=== PATIENT | female | born 1990 | race Caucasian/White ===

== ENCOUNTER 2018-11-19 10:54 | Outpatient (CLI) | payer OTHER ==
[~2018-11-19] VITALS: Ht 162.6 cm; Wt 78.6 kg
[~2018-11-19 10:54] MED LIST: PREN1TAB27 PO
[2018-11-19 11:49] VITALS: BP 111/69
[2018-11-19 11:52] LABS: MICROSCOPIC NOT IND
[2018-11-19 12:03] LABS: AMPHETAMINE SCREEN, URINE Negative (Negative); BARBITURATE SCREEN, URINE Negative (Negative); BENZODIAZEPINE SCREEN, URINE Negative (Negative); CANNABINOID SCREEN, URINE Negative (Negative); COCAINE SCREEN, URINE Negative (Negative); METHADONE SCREEN, URINE Negative (Negative); OPIATE SCREEN, URINE Negative (Negative)
[2018-11-19 12:20] LABS: FERNING TEST FERNING NOT PRESENT (NEGATIVE)
== END 2018-11-19 13:00 | disposition home or self-care (01) ==
LOC: LDOP 10:54
PROVIDERS: ATTEND Advanced Practice Midwife
DX: O42.913 Preterm premature rupture of membranes, unspecified as to length of time between rupture and onset of labor, third trimester (principal); O26.893 Other specified pregnancy related conditions, third trimester; R10.9 Unspecified abdominal pain; Z3A.34 34 weeks gestation of pregnancy
CPT/HCPCS: 59025; 80307; 81003; 84112; 87086; 89060; 99211; G0463; Q0114

== ENCOUNTER 2018-12-24 05:16 | Inpatient (IN) | payer OTHER ==
[~2018-12-24] VITALS: Ht 162.6 cm; Wt 79.5 kg
[2018-12-24] MEDS ORDERED: OXYTOCIN 30U/ 0.9% NaCL 500ML 500 ML IV ONE (05:20)
[2018-12-24] MEDS ORDERED: CALCIUM CARBONATE 500 MG TAB.CHEW PO PRN (05:30)
[2018-12-24] MEDS ORDERED: FENTANYL PF 100 MCG/2ML IV PRN (05:30)
[2018-12-24] MEDS ORDERED: TERBUTALINE 1 MG/ML, 1ML IVPush PRN ×2 (05:30)
[2018-12-24] MEDS ORDERED: ONDANSETRON 2MG/ML, 2ML IVPush PRN (05:30)
[2018-12-24] MEDS ORDERED: FENTANYL PF 100 MCG/2ML IVPush PRN (05:30)
[2018-12-24 05:31] VITALS: BP 112/77
[2018-12-24] MEDS: LACTATED RINGERS 1,000 ML IV SCH ×2 (06:08→11:06)
[2018-12-24] MEDS ORDERED: OXYTOCIN 30U/ 0.9% NaCL 500ML 500 ML ONE ×2 (06:12→19:26)
[2018-12-24] MEDS ORDERED: OXYTOCIN 30U/ 0.9% NaCL 500ML 500 ML IV PRN (06:15)
[2018-12-24 06:21] LABS: BASOPHILS # (AUTO) 0.04 x10^3/uL (0-0.1); BASOPHILS % (AUTO) 1 % (0-1); EOSINOPHILS # (AUTO) 0.26 x10^3/uL (0-0.4); EOSINOPHILS % (AUTO) 4 % (1-7); LYMPHOCYTES # (AUTO) 1.78 x10^3/uL (1-3.4); LYMPHOCYTES % (AUTO) 25 % (22-44); MD NO; MEAN CORPUSCULAR HEMOGLOBIN 29.7 pg (27.0-34.8); MEAN CORPUSCULAR HGB CONC 34.4 g/dL (32.4-35.8); MEAN CORPUSCULAR VOLUME 86.2 fL (80-100); MEAN PLATELET VOLUME 7.8 fL (7.4-10.4); MONOCYTES # (AUTO) 0.64 x10^3/uL (0.2-0.8); MONOCYTES % (AUTO) 9 % (2-9); NEUTROPHILS # (AUTO) 4.32 x10^3/uL (1.8-6.8); NEUTROPHILS % (AUTO) 61 % (42-75); PLATELET COUNT 326 x10^3/uL (130-400); RED BLOOD COUNT 4.16 x10^6/uL (3.82-5.3); RED CELL DISTRIBUTION WIDTH 12.9 % (9.6-15.2)
[2018-12-24] MEDS ORDERED: FENTANYL/BUPIV./NS/PF 250 ML EPIDCONT SCH ×2 (07:26→10:42)
[2018-12-24] MEDS ORDERED: LACTATED RINGERS 1,000 ML IV SCH (07:26)
[2018-12-24] MEDS ORDERED: EPHEDRINE 50 MG/ML, 1ML IVPush PRN (07:30)
[2018-12-24] MEDS ORDERED: LACTATED RINGERS 1,000 ML IVBOLUS PRN (07:30)
[2018-12-24] MEDS ORDERED: NALOXONE 0.4 MG/ML, 1ML IVPush PRN (07:30)
[2018-12-24] MEDS ORDERED: FENTANYL PF 500 MCG, BUPIVACAINE/PF 0.5%, 30ML 62.5 ML in SODIUM CHLORIDE 0.9% 177.5 ML EPIDCONT SCH (11:00)
[2018-12-24] MEDS ORDERED: NEWBORN KIT ONE (12:48)
[2018-12-24] MEDS ORDERED: BUPIVACAINE 0.25% ONE ×2 (13:01→13:05)
[2018-12-24] MEDS ORDERED: FENTANYL/BUPIV./NS/PF 250 ML EPIDCONT ONE (13:05)
[2018-12-24] MEDS ORDERED: CALCIUM CARBONATE 500 MG TAB.CHEW ONE (16:38)
[2018-12-24] MEDS ORDERED: D5%-LACTATED RINGERS 1,000 ML IV SCH (17:00)
[2018-12-24 19:04] VITALS: BP 102/62
[2018-12-24] MEDS ORDERED: LIDOCAINE 1%, 20ML ONE (19:25)
[2018-12-24] MEDS ORDERED: MISOPROSTOL 200 MCG TABLET ONE (19:26)
[2018-12-24] MEDS ORDERED: IBUPROFEN 600 MG TABLET ONE (21:12)
[2018-12-24] MEDS ORDERED: OXYcodone/APAP 5/325MG TABLET ONE (21:13)
[2018-12-24] MEDS: IBUPROFEN 600 MG TABLET PO PRN (21:16)
[2018-12-24] MEDS: OXYcodone/APAP 5/325MG TABLET PO PRN (21:16)
[2018-12-24] MEDS: OXYTOCIN 30U/ 0.9% NaCL 500ML 500 ML IV SCH (21:16)
[2018-12-24] MEDS ORDERED: CARBOPROST TROMETHAMINE 250 MCG/ML, 1ML IM PRN (21:30)
[2018-12-24] MEDS ORDERED: ACETAMINOPHEN 325 MG TABLET PO PRN (21:30)
[2018-12-24] MEDS ORDERED: MISOPROSTOL 200 MCG TABLET PR PRN (21:30)
[2018-12-24] MEDS ORDERED: METHYLERGONOVINE 0.2 MG/ML IM PRN (21:30)
[2018-12-24] MEDS ORDERED: OXYcodone IR 5MG TABLET PO PRN (21:30)
[2018-12-24] MEDS ORDERED: ONDANSETRON 2MG/ML, 2ML IV PRN (21:30)
[2018-12-24 23:45] VITALS: BP 115/75
[2018-12-25 02:30] VITALS: BP 103/67
[2018-12-25] MEDS: IBUPROFEN 600 MG TABLET PO PRN ×3 (03:45→16:41)
[2018-12-25] MEDS: OXYcodone/APAP 5/325MG TABLET PO PRN ×3 (03:45→21:39)
[2018-12-25 06:04] LABS: BASOPHILS # (AUTO) 0.03 x10^3/uL (0-0.1); BASOPHILS % (AUTO) 0 % (0-1); EOSINOPHILS # (AUTO) 0.05 x10^3/uL (0-0.4); EOSINOPHILS % (AUTO) 0 % (1-7); LYMPHOCYTES # (AUTO) 1.49 x10^3/uL (1-3.4); LYMPHOCYTES % (AUTO) 11 % (22-44); MD NO; MEAN CORPUSCULAR HEMOGLOBIN 29.2 pg (27.0-34.8); MEAN CORPUSCULAR HGB CONC 33.5 g/dL (32.4-35.8); MEAN CORPUSCULAR VOLUME 87.1 fL (80-100); MEAN PLATELET VOLUME 7.8 fL (7.4-10.4); MONOCYTES # (AUTO) 0.81 x10^3/uL (0.2-0.8); MONOCYTES % (AUTO) 6 % (2-9); NEUTROPHILS # (AUTO) 10.75 x10^3/uL (1.8-6.8); NEUTROPHILS % (AUTO) 82 % (42-75); PLATELET COUNT 325 x10^3/uL (130-400); RED BLOOD COUNT 3.97 x10^6/uL (3.82-5.3); RED CELL DISTRIBUTION WIDTH 12.9 % (9.6-15.2)
[2018-12-25 07:24] VITALS: BP 108/72
[2018-12-25] MEDS: PRENATAL VIT/IRON/FA 1 EACH TABLET PO SCH (09:54)
[2018-12-25] MEDS: DOCUSATE 100 MG CAPSULE PO PRN (09:55)
[2018-12-25 12:10] VITALS: BP 102/71
[2018-12-25] MEDS: OXYTOCIN 30U/ 0.9% NaCL 500ML 500 ML IV SCH (17:12)
[2018-12-25 21:15] VITALS: BP 106/73
[2018-12-26] MEDS: IBUPROFEN 600 MG TABLET PO PRN ×2 (02:43→08:11)
[2018-12-26] MEDS: OXYTOCIN 30U/ 0.9% NaCL 500ML 500 ML IV SCH (03:12)
[2018-12-26] MEDS: OXYcodone/APAP 5/325MG TABLET PO PRN (08:11)
[2018-12-26] MEDS: PRENATAL VIT/IRON/FA 1 EACH TABLET PO SCH (08:11)
[2018-12-26] MEDS: DOCUSATE 100 MG CAPSULE PO PRN (08:11)
[2018-12-26 08:45] VITALS: BP 112/76
[2018-12-26] MEDS ORDERED: DOCU-131 PO (10:04)
[2018-12-26] MEDS ORDERED: IBUP-1222 PO (10:04)
== END 2018-12-26 10:30 | disposition home or self-care (01) | DRG 806 ==
LOC: LDIP 05:16 → 2NW 23:24
PROVIDERS: ADMIT Obstetrics & Gynecology Maternal & Fetal Medicine; ATTEND Obstetrics & Gynecology Maternal & Fetal Medicine
PROC: 3E0R3BZ Introduction of Anesthetic Agent into Spinal Canal, Percutaneous Approach (ICD-10-PCS; principal; 2018-12-24)
PROC: 10E0XZZ Delivery of Products of Conception, External Approach (ICD-10-PCS; 2018-12-24)
PROC: 00HU33Z Insertion of Infusion Device into Spinal Canal, Percutaneous Approach (ICD-10-PCS; 2018-12-24)
PROC: 10907ZC Drainage of Amniotic Fluid, Therapeutic from Products of Conception, Via Natural or Artificial Opening (ICD-10-PCS; 2018-12-24)
PROC: 3E033VJ Introduction of Other Hormone into Peripheral Vein, Percutaneous Approach (ICD-10-PCS; 2018-12-24)
DX: O69.1XX0 Labor and delivery complicated by cord around neck, with compression, not applicable or unspecified (principal); O98.42 Viral hepatitis complicating childbirth; Z37.0 Single live birth; B19.20 Unspecified viral hepatitis C without hepatic coma; Z3A.39 39 weeks gestation of pregnancy
CPT/HCPCS: 36415; J7121; 85025; 86850; 86900; G0378; J3490; J2590; J3010; J7120

== ENCOUNTER 2019-06-17 06:04 | Day surgery (SDC) | payer OTHER ==
[~2019-06-17] VITALS: Ht 162.6 cm; Wt 71.4 kg
[~2019-06-17 06:04] MED LIST changes: +DOCU-131 PO; +IBUP-1222 PO
[2019-06-17] MEDS ORDERED: LACTATED RINGERS 1,000 ML IV SCH (06:32)
[2019-06-17 06:34] VITALS: BP 118/83
[2019-06-17] MEDS ORDERED: FENTANYL PF 250 MCG/5ML ONE (06:35)
[2019-06-17] MEDS ORDERED: MIDAZOLAM 1 MG/ML, 2ML ONE (06:35)
[2019-06-17] MEDS ORDERED: CEFOTETAN PMX 2GM/50ML 50 ML ONE (06:42)
[2019-06-17] MEDS ORDERED: KETOROLAC 30 MG/1 ML ONE (06:42)
[2019-06-17] MEDS ORDERED: PHENYLEPHRINE 10 MG/ML ONE (06:43)
[2019-06-17] MEDS ORDERED: OXYcodone 5 MG/5 ML ORAL.SOL UDC PO PRN (07:00)
[2019-06-17] MEDS ORDERED: PROMETHAZINE 25 MG/ML, 1ML IV PRN (07:00)
[2019-06-17] MEDS ORDERED: GABAPENTIN 300 MG CAPSULE PO ONE (07:00)
[2019-06-17] MEDS ORDERED: METOPROLOL 1 MG/ML, 5ML IV PRN (07:00)
[2019-06-17] MEDS ORDERED: ACETAMINOPHEN 500 MG TABLET PO ONE (07:00)
[2019-06-17] MEDS ORDERED: HALOPERIDOL 5 MG/ML IV PRN (07:00)
[2019-06-17] MEDS ORDERED: BUPIVACAINE/PF 0.5% ONE (07:00)
[2019-06-17] MEDS ORDERED: SCOPOLAMINE PATCH, 1.5MG PATCH.TD72 TD ONE (07:00)
[2019-06-17] MEDS ORDERED: MEPERIDINE/PF 25MG/ML,1ML IVPush PRN (07:00)
[2019-06-17] MEDS ORDERED: HYDROmorphone 2 MG/ML, 1ML IVPush PRN (07:00)
[2019-06-17] MEDS ORDERED: MORPHINE SULFATE 4 MG/ML, 1ML IVPush PRN (07:00)
[2019-06-17] MEDS ORDERED: LABETALOL 5MG/ML, 20ML IV PRN (07:00)
[2019-06-17] MEDS ORDERED: DEXAMETHASONE 4 MG/ML, 1ML ONE (07:10)
[2019-06-17] MEDS ORDERED: CEFAZOLIN 1,000 MG ONE (07:10)
[2019-06-17] MEDS ORDERED: NEOSTIGMINE 1 MG/ML, 10ML ONE (07:10)
[2019-06-17] MEDS ORDERED: PROPOFOL 10 MG/ML, 20ML ONE (07:10)
[2019-06-17] MEDS ORDERED: ONDANSETRON 2MG/ML, 2ML ONE (07:10)
[2019-06-17] MEDS ORDERED: ROCURONIUM 10MG/ML,5ML ONE (07:10)
[2019-06-17] MEDS ORDERED: GLYCOPYRROLATE 0.2MG/1ML, 5ML ONE (07:10)
[2019-06-17] MEDS ORDERED: EPINEPHRINE 1 MG/ML, 1ML INFIL ONE (07:41)
[2019-06-17] MEDS ORDERED: OXYcodone 5 MG/5 ML ORAL.SOL UDC ONE (08:02)
[2019-06-17] MEDS ORDERED: FENTANYL PF 100 MCG/2ML ONE (08:02)
[2019-06-17] MEDS: FENTANYL PF 100 MCG/2ML IV PRN ×3 (08:04→08:21)
[2019-06-17] MEDS ORDERED: HYDROcodone/APAP 5/325 TABLET ONE (09:48)
== END 2019-06-17 11:15 | disposition home or self-care (01) ==
LOC: OUT 06:04
PROVIDERS: ATTEND Surgery
DX: K80.10 Calculus of gallbladder with chronic cholecystitis without obstruction (principal); Z72.89 Other problems related to lifestyle; Z79.1 Long term (current) use of non-steroidal anti-inflammatories (NSAID); Z79.899 Other long term (current) drug therapy; Z87.891 Personal history of nicotine dependence; Z98.890 Other specified postprocedural states; Z82.49 Family history of ischemic heart disease and other diseases of the circulatory system
CPT/HCPCS: 47562; 81025; 88304; C1729; J0171; J0690; J1100; J1885; J2250; J2370; J2405; J2704; J2710; J3010; J3490; J7120